=== PATIENT | female | born 1990 | race Caucasian/White ===

== ENCOUNTER 2022-10-31 09:31 | Outpatient (REF) | payer OTHER, SELFPAY ==
[2022-10-31 12:04] LABS: Alanine Aminotransferase 8 U/L (0-31); Alkaline Phosphatase 55 U/L (39-117); Anion Gap 13 (12-20); Aspartate Amino Transferase 11 U/L (5-31); Bilirubin Total 0.5 mg/dL (0.0-1.0); Blood Urea Nitrogen 6 mg/dL (9-16); Calcium 8.8 mg/dL (8.4-10.2); Carbon Dioxide 24 mmol/L (22-29); Chloride 109 mmol/L (96-108); Cholesterol 147 mg/dL; Estimated Glomerular Filt Rate > 60; Glucose Fasting 75 mg/dL (60-99); HDL Cholesterol 40 mg/dL; LDL Cholesterol Calculated 93 mg/dl; Potassium 4.8 mmol/L (3.3-5.1); Sodium 141 mmol/L (135-145); Total Protein 6.5 g/dL (6.5-8.0); Triglycerides 74 mg/dL
== END 2022-10-31 09:32 | disposition home or self-care (01) ==
LOC: HO.LAB 09:31
PROVIDERS: PCP Internal Medicine; Visit Provider Internal Medicine
DX: Z00.00 Encounter for general adult medical examination without abnormal findings (principal); R20.2 Paresthesia of skin
CPT/HCPCS: 36415; 80053; 80061

== ENCOUNTER 2022-12-20 13:20 | Outpatient (REF) | payer OTHER, SELFPAY ==
--- NOTE | 2022-12-20 10:00 | EMG_ITS ---
Bilateral median and ulnar motor and sensory studies were performed. Bilateral radial sensory studies were performed and paraspinal muscles were tested with a needle. IMPRESSION: 1. Mild right median neuropathy across carpal tunnel. 2. Early bilateral ulnar neuropathy across cubital. MD OTF Hernandez/MIGUELINA / [id number]
== END 2022-12-20 13:21 | disposition home or self-care (01) ==
LOC: HO.NEURO 13:20
PROVIDERS: PCP Internal Medicine; Visit Provider Internal Medicine
DX: R20.2 Paresthesia of skin (principal)
CPT/HCPCS: 95886; 95911

== ENCOUNTER 2023-05-22 14:15 | Outpatient (AMB) | payer OTHER, SELFPAY ==
--- NOTE | 2023-05-22 14:21 | A.OFFVIS_ITS ---
Intake Vital Signs 05/22/23 14:30 Height 5 ft 6 in Weight 141 lb 2 oz BMI 22.8 BP 112/70 Blood Pressure Location Rt brachial Position Sitting Respiration 16 Pulse 66 Pulse Source Pulse Oximeter Pulse Oximetry (%) 98 Oxygen Delivery Method Room Air Intake Visit Reasons: INP-Lession of median nerve-confirmed Intake Note: Pt presents to office for new patient evaluation of Lesion of median nerve. She states she underwent testing for carpal tunnel and they found something else wrong with me . She reports bilateral axillary pain that shoots down towards her hands. This causes tingling, stiffness and numbness usually lasting around 5 minutes. She has been having these episodes for 2 years. They have gradually become worse. Shipping And Receiving Associate Required: No Allergies mustard [MUSTARD*] Allergy (Severe, Verified 05/22/23 14:) ANAPHYLAXIS mustard Allergy (Unknown, Uncoded 05/22/23 14:27) Hives seasonal/ pollen Allergy (Unknown, Uncoded 05/22/23 14:) runny nose, itchy eyes shell fish/ mustard Allergy (Unknown, Uncoded 05/22/23 14:27) hives, swollen throat Medication List - Last Reconciled 05/22/23 by Daxa Marley MD magnesium oxide 400 mg PO BEDTIME HPI HPI Comments History of Present Illness Details 33y/o female comes for evaluation of num bness, tingling in kaye upper extremities. This started about 2 years ago and has progressed.she reports pain in her axilla and then the pain shoots down her arm and forearm hands , followed numbness tingling. It is more on her right than left. It can last 5 minutes and happen 1-2 times a week.she is not sure of the triggering factors.The symptoms have increased since then she has neck pain and stiff neck. She does not sleep well mainly because of her 3 year old daughters epilepsy - she watches her at night. [facility] Medical History (Updated 05/22/23 @ 14:50 by Daxa Marley MD) Cervicalgia Surgical History History of appendectomy History of tubal ligation Family History Father Heart attack Mother No problems noted. Paternal Aunt Heart attack Paternal Grandmother Heart attack Social History Housing: House Alcohol intake: current Alcohol intake frequency: holidays/special occasions only Alcohol type: hard liquor Patient Tobacco Use Status: Current everyday Tobacco user Tobacco use type: Cigarette Cigarettes Per Day: 4 Years Smoked: 13 years e-Cigarette/Vaping Use: Never Used Second Hand Smoke Exposure: No Substance Use Type: Marijuana Substance Use Type Other:: daily service: No Current occupational status: employed Current occupational exposures/hazards: No Cognitive needs: No Hearing needs: No Vision needs: No Review of Systems Const All systems reviewed & are unremarkable except as noted in HPI and below Eyes Reports no additional complaints, Denies change in vision and Denies other visual disturbances Card Denies chest pain at rest, Denies chest pain with activity, Denies edema, Denies irregular heart rhythm, Denies claudication, Denies dyspnea, Denies dyspnea on exertion, Denies orthopnea, Denies paroxysmal nocturnal dyspnea and Denies slow heart rate Resp Denies cough, Denies dyspnea and Denies dyspnea on exertion GI Denies abdominal pain, Denies change in bowel habits, Denies excessive flatus, Denies nausea and Denies vomiting Denies urinary incontinence, Denies urinary hesitancy and Denies urinary urgency Musc Denies abnormal gait, Denies atrophy, Denies deformity and Denies limited range of motion Skin/Breast Denies bleeding lesions, Denies changing lesions and Denies rash Neuro Denies abnormal gait and Denies lack of coordination Physical Exam Vital Signs: Last Vital Signs Pulse 66 05/22/23 14:30 Resp 16 05/22/23 14:30 BP 112/70 05/22/23 14:30 Pulse Ox 98 05/22/23 14:30 Oxygen Delivery Method Room Air 05/22/23 14:30 BMI result Body Mass Index 22.8 Const General: cooperative, healthy appearing and comfortable Nutritional Appearance: average body habitus Orientation/consciousness: patient oriented x3 Eyes Pupils: Equal, round and reactive pupils present Neuro General: patient oriented x3, gait normal, tone normal and moves all extremities Cranial nerves: Yes Facial sensation intact/muscles of mastication intact, Yes Equal, round and reactive pupils present, Yes Bilaterally intact EOM present, Yes Nystagmus not present, Yes Normal facial strength present, Yes Midline tongue present and Yes Symmetric palate elevation present Cognition (Neuro): normal cognition Gait exam (Neuro): Normal gait present Motor exam (neuro): 5/5 motor strength present throughout and Normal motor muscle tone present throughout Deep tendon reflexes (DTR's): Right triceps reflex intensity grade: 2+, Left triceps reflex intensity grade: 2+, Rt Biceps (C5, C6): 2+, Left biceps reflex intensity grade: 2+, Right brachioradialis reflex intensity grade: 2+, Left brachioradialis reflex intensity grade: 2+, Right patellar reflex intensity grade: 2+ and Left patellar reflex intensity grade: 2+ Coordination: [id number] test normal Results Reviewed Results Reviewed: EMG - 12/2022 MIld right median neuropathy and kaye ulnar neuropathy mild Assessment & Plan Assessment & Plan (1) Cervicalgia: Comment: neck stiffness and spasm Code(s): M54.2 - Cervicalgia (2) Paresthesia: Code(s): R20.2 - Paresthesia of skin Plan Her intermittent pain and paresthesias are likely related to neck spasm ? possible radiculopathy. I will evaluate her with XR C spine and schedule for PT for her neck will consider a repeat EMG EMG form December 2022 did not show any evidence of radiculopathy. Orders: Orders XR cervical spine 3V Today M54.2 - Cervicalgia, R20.2 - Paresthesia of skin PT Evaluation and Treatment Today M54.2 - Cervicalgia, R20.2 - Paresthesia of skin Medications: New 2 magnesium oxide 400 mg PO BEDTIME 30 tabs 6RF Coding Level of Care Code New Pt Level 4 (25910) Diagnoses Cervicalgia M54.2 Paresthesia R20.2
[2023-05-22 14:30] VITALS: BP 112/70; PULSE 66; RESP 16; O2SAT 98; BMI 22.8
== END 2023-05-22 14:55 | disposition home or self-care (01) ==
PROVIDERS: Visit Provider Psychiatry & Neurology Neurology
DX: M54.2 Cervicalgia (principal); R20.2 Paresthesia of skin
CPT/HCPCS: 99204

== ENCOUNTER → 2023-05-22 14:15 | Outpatient (BNVA) | payer OTHER, SELFPAY | PROVIDERS: Visit Provider Psychiatry & Neurology Neurology ==

== ENCOUNTER 2023-07-17 09:00 | Outpatient (RCR) | payer OTHER, SELFPAY ==
--- NOTE | 2023-07-12 12:57 | MHC.PT.EP ---
[facility] [place] Office [place] Office [place] Office [address] Sherice Orr [address] [phone] F: [phone] F: [phone] F: [phone] F: [phone] Physical Therapy Plan of Care Date of Evaluation: 07/12/23 Date of Surgery: NA Diagnosis: CERVICALGIA Assessment: Pt IS 33 YO RHD F REFERRED TO PT FROM DR ALLEN WITH CERVICALGIA WITH PARESTHESIA. PRESENTS WITH GENERALLY GOOD SHLDER AND CERV ROM AND DECENT SHLDER STRENGTH. Pt REPORTS EPISODES OF UE SHOOTING PAIN THAT ARE SHORT LIVED. 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 THIS MAY BE ADDED TO UT TIGHTNESS. SHOULD BENEFIT FROM SHORT BOUT OF PT TO HELP ESTABLISH A HOME PROGRAM OF UPPER BODY STRETCHES AND STRENGTHENING EXS TO HELP ALLEVIATE PAIN. Pt SHOULD BENEFIT FROM ED RE RELAXATION TECHNIQUES AND POSTURE WORK ALSO (IS TO BE STARTING SEASONAL SECRETARIAL WORK IN AUGUST) Frequency and Duration: The patient will be seen 2X/WK X 4 WKS Short Term Goals: 1. INCREASED AWARENESS POSTURE AND NECK CARE 2. DECREASED UE SHOOTING PAIN (DECREASED INTENSITY AND FREQUENCY) Table Filler Goals: 1. I HEP WITH DC EX PLAN 2. DECREASED PAIN AT LEAST 50% WITH ADLS 3. IMPROVED NPDI ( SOC) Treatment Plan: Modalities to reduce pain, spasms and effusion. Manual therapy to restore motion and function. Therapeutic exercise to improve strength and flexibility. Neuromuscular re-education for posture and balance. Therapeutic activities to return to functional activities of daily living. Electronically signed by: SIMA NATHAN PT Please sign and return to therapist. Thank you for your referral.
--- NOTE | 2023-08-02 10:50 | MHC.PT.DC ---
[facility] [place] Office [place] Office [place] Office [address] Sherice Orr [address] [phone] F: [phone] F: [phone] F: [phone] F: [phone] Physical Therapy Discharge Report Diagnosis: CERVICALGIA Date of Surgery: NA Date of Evaluation: 07/12/23 Date of Discharge: 08/02/23 Treatments to Date: 3 Cancellations to Date: No Shows to Date: Discharge Status: Recommend MD Follow-up Visit Non-compliance Discharge Summary: Pt SEEN FOR INIT EVAL AND 2 VISITS, THEN NO SHOW X 3 PER INITIAL ASSESSMENT:Pt IS 33 YO RHD F REFERRED TO PT FROM DR ALLEN WITH CERVICALGIA WITH PARESTHESIA. PRESENTS WITH GENERALLY GOOD SHLDER AND CERV ROM AND DECENT SHLDER STRENGTH. Pt REPORTS EPISODES OF UE SHOOTING PAIN THAT ARE SHORT LIVED. 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 THIS MAY BE ADDED TO UT TIGHTNESS. SHOULD BENEFIT FROM SHORT BOUT OF PT TO HELP ESTABLISH A HOME PROGRAM OF UPPER BODY STRETCHES AND STRENGTHENING EXS TO HELP ALLEVIATE PAIN. Pt SHOULD BENEFIT FROM ED RE RELAXATION TECHNIQUES AND POSTURE WORK ALSO (IS TO BE STARTING SEASONAL SECRETARIAL WORK IN AUGUST) Electronically signed by: SIMA NATHAN PT Please sign and return to therapist. Thank you for your referral.
== END 2023-08-02 10:51 | disposition home or self-care (01) ==
LOC: HO.PT 09:00
PROVIDERS: PCP Internal Medicine; Visit Provider Psychiatry & Neurology Neurology
DX: M54.2 Cervicalgia (principal); R20.2 Paresthesia of skin
CPT/HCPCS: 97110; 97140; 97161; 97535

== ENCOUNTER 2025-07-13 13:50 | Outpatient (AMB) | payer OTHER, SELFPAY ==
--- NOTE | 2025-07-13 13:58 | MHC.PC.OV ---
Vital Signs 07/13/25 13:59 Height 5 ft 6 in Weight 147 lb 6 oz BMI 23.8 BP 96/68 Blood Pressure Location Lt brachial Position Sitting Respiration 18 Pulse 63 Pulse Source Pulse Oximeter Temp Source Temporal Artery Scan Pulse Oximetry (%) 100 Oxygen Delivery Method Room Air Intake Visit Reasons: Annual pe Fundraising Consultant Required: No Accompanied by: Self / Same As Patient Allergies mustard (MUSTARD*) Allergy (Severe, Verified 07/13/25 14:19) ANAPHYLAXIS mustard Allergy (Unknown, Uncoded 07/13/25 14:19) Hives seasonal/ pollen Allergy (Unknown, Uncoded 07/13/25 14:19) runny nose, itchy eyes shell fish/ mustard Allergy (Unknown, Uncoded 07/13/25 14:19) hives, swollen throat Medication List - Last Reconciled 07/13/25 by Matilde Elam MD No Known Home Meds Tobacco use date assessed: 07/13/25 Dental Screening Dental Screen Date: 07/13/25 Did you have a dental visit in the last 12 months?: No Did you have a dental problem in the last 6 months where you did not have access to dental care?: No Was dental information given to patient?: Patient has dentist HPI HPI Comments History of Present Illness Details The patient is a 35 year old individual presenting for a physical examination. The patient has a history of muscle spasms for which magnesium, prescribed by a neurologist, was ineffective. The patient reports current back stiffness with painful, limited motion. Physical therapy was not helpful in the past. The patient's last Pap smear was positive for HPV with high-grade cells, and is due for a repeat test. The last blood work was performed about two years ago. The patient has known allergies to mustard, seasonal allergens, and shellfish. Past surgical history includes an appendectomy and a tubal ligation. Family history is significant for a father who of a heart attack. The patient's mother is alive with no medical conditions. [facility] Medical History Cervicalgia Surgical History History of appendectomy History of tubal ligation Family History Father Heart attack Mother No problems noted. Paternal Aunt Heart attack Paternal Grandmother Heart attack Social History Housing: House Alcohol intake: current Alcohol intake frequency: holidays/special occasions only Alcohol type: hard liquor Patient Tobacco Use Status: Current everyday Tobacco user Tobacco use type: Cigarette Cigarettes Per Day: 4 Years Smoked: 13 years e-Cigarette/Vaping Use: Never Used Second Hand Smoke Exposure: No Substance Use Type: Marijuana service: No Current occupational status: employed Current occupational exposures/hazards: No Cognitive needs: No Hearing needs: No Vision needs: No Questionnaire Thrive Questionnaire Date Thrive assessed: 10/31/22 MELE-7 AMB Questionnaire MELE-7 Date MELE - 7 assessed: 10/31/22 Source: Developed by Drs. Jt Castillo, Kimberli Ott, Wilton Avery and colleagues, with an educational shane from [employer]. Review of Systems Const All systems reviewed & are unremarkable except as noted in HPI and below Card Denies chest pain at rest, Denies chest pain with activity, Denies edema, Denies irregular heart rhythm, Denies claudication, Denies dyspnea, Denies dyspnea on exertion, Denies orthopnea, Denies paroxysmal nocturnal dyspnea and Denies slow heart rate Resp Denies cough, Denies dyspnea and Denies dyspnea on exertion GI Denies abdominal pain, Denies change in bowel habits, Denies excessive flatus, Denies nausea and Denies vomiting Physical exam (Primary Care) Vital Signs: Last Vital Signs Pulse 63 07/13/25 13:59 Resp 18 07/13/25 13:59 BP 96/68 07/13/25 13:59 Pulse Ox 100 07/13/25 13:59 Oxygen Delivery Method Room Air 07/13/25 13:59 BMI result Body Mass Index 23.8 Tobacco/Smoking Status: Tobacco use Status Tobacco use date assessed 07/13/25 07/13/25 14:07 Patient Tobacco Use Status Current everyday Tobacco 07/13/25 14:07 Tobacco use type Cigarette 07/13/25 14:07 e-Cigarette/Vaping Use Never Used 07/13/25 14:07 Thrive Assessment: Date of Thrive Assessment Date Thrive assessed 10/31/22 07/13/25 14:07 [facility] Head: Yes normal to inspection, Yes normocephalic and Yes atraumatic Ears: external ears normal Eyes General: appearance normal, both eyes and all related structures Eyelids: Yes eyelids normal Conjunctivae: conjunctivae normal Neck Neck: Yes normal visual inspection and Yes supple Resp Effort & Inspection: normal respiratory effort Auscultation: clear to auscultation bilaterally Cardio Jugular venous distension: no JVD Rate: regular rate Rhythm: regular rhythm Heart sounds: S1 normal heart sound present and S2 normal heart sound present GI Inspection: Yes normal to inspection Palpation (GI): Soft to palpation and nontender Auscultation: normal bowel sounds Skin General skin exam: no rashes or lesions noted Neuro General: no focal motor deficits Extrem General: Yes full ROM Psych Appearance: grossly normal Coding Level of Care Code Est Pt Level 3 (30089) Est Pt Prev Care 18-39y(70010) Diagnoses Physical exam Z00.00 Cervicalgia M54.2 Time Spent (min) 30 Assessment & Plan Assessment & Plan (1) Physical exam: Code(s): Z00.00 - Encounter for general adult medical examination without abnormal findings Category: Medical (2) Cervicalgia: Comment: neck stiffness and spasm Code(s): M54.2 - Cervicalgia Category: Medical Plan Plan 1. Physical exam Repeat in a year. 1. Muscle Spasm The patient reports muscle spasms with associated back stiffness and painful, limited motion. Prior treatment with magnesium was not effective, and physical therapy was not helpful. The patient has been using tramadol which was not prescribed, an opiate, once or twice a month for relief. A non-opiate muscle relaxant, such as Robaxin or baclofen, will be prescribed as an alternative but she declined. Orders: Orders Lipid Panel Today Z00.00 - Encounter for general adult medical examination without abnormal findings Comprehensive Phyllis. Panel Fast Today Z00.00 - Encounter for general adult medical examination without abnormal findings Medications: New diclofenac sodium 75 mg PO BID PRN 60 tabs 0RF pain 30 days
[2025-07-13 13:59] VITALS: BP 96/68; PULSE 63; RESP 18; O2SAT 100; BMI 23.8
--- OUTSIDE RECORDS SUMMARY | 2025-07-13 15:52 | XMS_ITS | Clinical Summary ---
Author Organization [facility] [address] [place] [address] [place] [phone] Phone Care Team Providers Care Validation Analyst Name Role Phone Matilde Elam MD Primary Care Provider Allergies Active Allergy Reactions Criticality Noted Date Comments Mustard Oil 10/16/2019 Shellfish Containing Products 2019 Medications medroxyPROGEST ERone 150 mg/mL injection Inject 1 mL (150 mg total) into the shoulder, thigh, or buttocks once every twelve (12) weeks. 1 mL 3 5 Active medroxyPROGEST ERone (Depo-Provera) 150 mg/mL injection Inject 1 mL (150 mg total) into the shoulder, thigh, or buttocks 1 (one) time for 1 dose. 1 mL 4 5 Active medroxyPROGEST ERone 150 mg/mL injection Inject 1 mL (150 mg total) into the shoulder, thigh, or buttocks 1 (one) time for 1 dose. 1 mL 5 025 Discontinued medroxyPROGEST ERone 150 mg/mL injection Inject 1 mL (150 mg total) into the shoulder, thigh, or buttocks once every twelve (12) weeks. 1 mL 3 5 025 Discontinued Active Problems Problem Noted Date Diagnosed Date High risk human papilloma virus (HPV) infection of cervix 11/09/2019 Overview (06/26/2024): 10/29/2019 Normal papsmear with Pos HR HPV neg 16/18 08/07/2021 Normal papsmear negative for HRHPV Encounters Date Type Department Care Team Description 07/12/2025 Results Follow-Up Obstetrics and Gynecology - [address] [phone] Gloria Lazaro CNM 07/06/2025 3:30 PM EST Office Visit Obstetrics and Gynecology - [id number] [place], [place] [phone] Gloria Lazaro CNM Encounter for gynecological examination without abnormal finding (Primary Dx); Screen for STD (sexually transmitted disease); Menorrhagia with regular cycle from Last 3 Months Immunizations Immunization Administration Dates Next Due HPV, Quadrivalent 02/16/2009,11/09/2008,04/29/20 08 Hepatitis B Pediatric (Enger ix B; Recombivax HB) to less than 20 yo 04/29/2001,10/29/2000,09/06/2000 MMR, measles mumps and rubel la Live (Priorix; M-M-R II) 12mo and older 04/29/2001,08/30/1989 Tdap Tetanus diptheria acell ular pertussis (Boostrix; Adacel) 7yo and older 02/18/2020,11/22/2014 Surgical History Surgery Date Site/Laterality Comments APPENDECTOMY 2003 PROCEDURE: ID APPENDECTOMY TUBAL LIGATION 03/21/2021 PROCEDURE: HISTORICAL TUBAL LIGATION Medical History Medical History Date Comments ASCUS with positive high ris k HPV cervical 03/31/2009 DX:ASCUS with positive high risk HPV cervical; COMMENT: ASCUS pap 02/16/10, 11/14/11 History of colposcopy 05/09/2009 DX:History of colposcopy; COMMENT: 05/09/09 TONY 1... 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 DX: renal anomaly, single gestation Mild hyperemesis gravidarum, antepartum 11/16/2019 DX:Mild hyperemesis gravidar um, antepartum Anemia in 02/22/2020 DX:Anemia in ; COMMENT: 02/22/20- Iron supplement started Family History Medical History Relation Name Comments Heart attack Father No Known Problems Maternal Grandfather Diabetes Maternal Grandmother Hypertension Maternal Grandmother No Known Problems Mother No Known Problems Paternal Grandfather No Known Problems Paternal Grandmother Arthritis Sister 1 No Known Problems Sister 2 Breast cancer Neg Hx Cervical cancer Neg Hx Ovarian cancer Neg Hx Uterine cancer Neg Hx Relation Name Status Comments Father Maternal Grandfather Alive Maternal Grandmother Alive Mother Alive Paternal Grandfather Alive Paternal Grandmother Sister 1 Alive Sister 2 Alive Social History Tobacco Use Types Packs/Day Years Used Date Smoking Tobacco: Every Day Cigarettes 0.3 Last attempted to quit: 06/12/2019 Smokeless Tobacco: Never Tobacco Cessation:Ready to Q uit: Not Asked; Counseling Given: Not Answered Alcohol Use Standard Drinks/Week Comments Yes 0 (1 standard drink = 0.6 oz pur e alcohol) occ. Comments No Sex and Gender Information Value Date Recorded Sex Assigned at Not on file Legal Sex Female 9:02 AM EST Gender Identity Not on file Sexual Orientation Not on file Obstetrics History * This document contains information received from the source organization and may not represent a complete record from that organization. Para Term AB IAB SAB Ectopic Multiple Livin g Live Births 6 3 3 0 0 0 3 3 Date Outcome GA Total Labor Labor/2nd/3rd Weight Sex Type Anes PTL Vee A1 A5 Name Clin 2003 2007 2009 Term 39w 0d 3232 g (114 oz) F Vag-S pont Epidur al N Livin g [address] Dr Annabella simental Complications:None Delivery Location:[facility] 2014 Term 39w 2d 3175 g (112 oz) M Vag-S pont Epidur al N Livin g [address] Morris Complications:None Delivery Location:[facility] 2019 Term 39w 0d F Vag-S pont Epidur al Livin g Aime Avery and Complications:None Comments:epidural did not work Last Filed Vital Signs Vital Sign Reading Time Taken Comments Blood Pressure 118/78 07/06/2025 3:52 PM EST Pulse 78 07/06/2025 3:52 PM EST Temperature - - Respiratory Rate 16 07/06/2025 3:52 PM EST Oxygen Saturation - - Inhaled Oxygen Concentration - - Weight 67.7 kg (149 lb 3.2 oz) 07/06/2025 3:52 P M EST Height 150 cm (4' 11.06 ) 07/06/2025 3:52 PM EST Body Mass Index 30.08 07/06/2025 3:52 PM EST Plan of Treatment Upcoming Encounters Date Type Department Care Team (Late st Contact Info) Description 07/14/2025 2:00 PM EST Clinical Support Obstetrics and Gynecology - [address] [phone] Health Maintenance Due Date Last Done Comments Pneumococcal Vaccine: Pediatrics (0 to 5 Years) and At-Risk Patients (6 to 49 Years) (1 of 2 - PCV) 02/13/2007 Cholesterol Screening (Lipid Panel) 07/21/2022 HIV Screening 07/21/2022 Social Influencers of Health Screening 07/21/2022 Depression Screening 08/12/2024 COVID-19 Vaccine (2 - season) 2025 08/23/2021 Influenza Vaccine (#1) 2025 DTaP,Tdap,and Td Vaccines (6 - Td or Tdap) 02/17/2030 02/18/2020, 05/06/2019, 11/22/2014, Additional history exists Cervical Cancer Screening: HPV 07/07/2030 07/07/2025, 08/07/2021 RSV Immunization Adult Patients (1 - 1-dose 75+ series) 02/13/2063 Hepatitis B Vaccines Completed 04/29/2001, 10/29/2000, 09/06/2000 MMR Vaccines Completed 04/29/2001, 08/30/1989 HPV Vaccines Completed 02/16/2009, 10/12, 04/29/2008 Hepatitis C Screening Completed 06/10/2023 HIB Vaccines Aged Out No longer eligi ble based on patient's age to complete this topic Hepatitis A Vaccines Aged Out No long er eligible based on patient's age to complete this topic IPV Vaccines Aged Out No longer eligi ble based on patient's age to complete this topic Meningococcal ACWY Vaccine Aged Out N o longer eligible based on patient's age to complete this topic Meningococcal B Vaccine Aged Out No l onger eligible based on patient's age to complete this topic RSV Immunization Patients Under 20 months Aged Out No longer eligible based on patient's age to complete this topic Varicella Vaccines Aged Out No longer eligible based on patient's age to complete this topic Procedures Procedure Name Priority Date/Time Associated Diagnosis Comments CHLAMYDIA TRACHOMATIS AND NEISSERIA GONORRHOEAE BY TMA, THINPREP Routine 07/07/2025 8:07 AM EST Encounter for gynecological examination without abnormal finding HPV WITH REFLEX GENOTYPE Routine 07/07/2025 8:07 AM EST Encounter for gynecological examination without abnormal finding TRICHOMONAS VAGINALIS PCR Routine 07/07/2025 8:07 AM EST Encounter for gynecological examination without abnormal finding HEPATITIS C SCREENING Routine 06/10/2023 from Last 3 Months or Most Recently Relevant to Health Maintenance Results * Chlamydia trachomatis and neisseria gonorrhoeae by tma, thinprep (07/07/2025 8:07 AM EST) N. gonorrhoeae, RNA Probe Negative Negative LAB MICROBIOLOGY METHOD 07/12/2025 1:17 PM EST [facility] Chlamydia, RNA Probe Negative Negative LAB MICROBIOLOGY METHOD 07/12/2025 1:17 PM EST [facility] Broom Cervix uteri structure / Unknown 07/07/2025 8:07 AM EST 07/12/2025 6:45 AM EST Gloria BIRD LAB CYTOLOGY ORDERABLES Fin al Result [facility] [address] [place] [address], * (ABNORMAL) HPV with reflex genotype (07/07/2025 8:07 AM EST) HPV Positive( A) Negative LAB MICROBIOLOGY METHOD 07/12/2025 2:21 PM EST [facility] Broom Cervix uteri structure / Unknown 07/07/2025 8:07 AM EST 07/12/2025 6:45 AM EST Gloria BIRD LAB MOLECULAR DIAGNOSTICS O RDERABLES Final Result [facility] [address] [place] [address], * Trichomonas vaginalis molecular study (07/07/2025 8:07 AM EST) Pathologist [facility] Trichomonas vaginalis Negative Negative LAB MICROBIOLOGY METHOD 07/12/2025 1:27 PM EST [facility] Broom Cervix uteri structure / Unknown 07/07/2025 8:07 AM EST 07/12/2025 6:45 AM EST Gloria BIRD LAB BLOOD ORDERABLES Final Result Performing Organization Address City/[facility]/ZIP Co de Phone Number [facility] [address] [place] [address], * Hepatitis C Screening (06/10/2023) Pathologist [facility] Hepatitis C Screening Abstracted Historical Provider HEALTH MAINTENANCE Final Result from Last 3 Months or Most Recently Relevant to Health Maintenance Insurance [facility] [employer] [facility] Care Teams Validation Analyst Relationship Specialty Start Date End Date Matilde Elam MD [address] [place] [address] , [address] [facility]A: [facility] VALERIA Flores PCP - General Internal Medicine 10/27/24
--- OUTSIDE RECORDS SUMMARY | 2025-07-13 15:52 | XMS_ITS | Encounter Summary ---
Author Organization [facility] Address [address] [place] [phone] Care Team Providers Care Route Service Representative Name Role Phone Matilde Elam MD Primary Care Provider [phone] Encounter Details Date Type Department Care Team ([facility] Contact Info) Description 07/12/2025 Results Follow-Up Obstetrics and Gynecology - [address] [phone] Gloria Lazaro, [address] [phone] Social History Tobacco Use Types Packs/Day Years Used Date Smoking Tobacco: Every Day Cigarettes 0.3 Last attempted to quit: 06/12/2019 Smokeless Tobacco: Never Alcohol Use Standard Drinks/Week Comments Yes 0 (1 standard drink = 0.6 oz pur e alcohol) occ. Comments No Sex and Gender Information Value Date Recorded Sex Assigned at Not on file Legal Sex Female 9:02 AM EST Gender Identity Not on file Sexual Orientation Not on file documented as of this encounter Plan of Treatment Upcoming Encounters Date Type Department Care Team (Late Contact Info) Description 07/14/2025 2:00 PM EST Clinical Support Obstetrics and Gynecology - [address] [phone] documented as of this encounter Visit Diagnoses Not on filedocumented in this encounter Care Teams Route Service Representative Relationship Specialty Start Date End Date Matilde Elam MD [address] [place] [address] , [address] [facility] D[facility]B/A: [facility] VALERIA Flores PCP - General Internal Medicine 10/27/24 documented as of this encounter
== END 2025-07-13 14:31 | disposition home or self-care (01) ==
LOC: HO.HMCH 13:50
PROVIDERS: PCP Internal Medicine; Visit Provider Internal Medicine
DX: Z00.00 Encounter for general adult medical examination without abnormal findings (principal); M54.2 Cervicalgia

== ENCOUNTER → 2025-07-13 13:50 | Outpatient (BNVA) | payer OTHER, SELFPAY | PROVIDERS: PCP Internal Medicine; Visit Provider Internal Medicine | DX: Z00.00 Encounter for general adult medical examination without abnormal findings (principal); M54.2 Cervicalgia | CPT/HCPCS: 99212; 99395 ==